=== PATIENT | female | born 1945 | race African-American/Black ===

== ENCOUNTER 2024-12-13 16:14 | Emergency (ER) | payer OTHER ==
[~2024-12-13] VITALS: Ht 170.2 cm; Wt 82.0 kg
[2024-12-13] MEDS: METHYLPREDNISOLONE SOD SUCC 125MG/2ML (ACT-O-VIAL) IV STA (17:05)
[2024-12-13 17:06] LABS: HEMATOCRIT. 23.4 % (36.0-48.0); HEMOGLOBIN. 7.1 g/dL (12.0-16.0); MEAN PLATELET VOLUME 9.3 fl (7.4-10.4); PLATELET 281 x1000/uL (130-400); RED BLOOD CELL COUNT 3.27 mill/uL (4.2-5.4); RED CELL DISTRIBUTION WIDTH 20.2 % (11.6-14.6)
[2024-12-13 17:18] LABS: CREATININE 1.8 mg/dL (0.6-1.0); UREA NITROGEN BLOOD 32 mg/dL (9-23)
[2024-12-13 17:27] LABS: TROPONIN I HIGH SENSITIVITY 144 ng/L (3.0-34)
[2024-12-13 17:52] LABS: BAND% 3.0 % (1.0-6.0); EOSINOPHILS % MANUAL 2.0 % (0.0-5.0); LYMPHOCYTES % MANUAL 13.0 % (20.0-60.0); METAMYELOCYTES % 1.0 % (0-0); MONOCYTES % MANUAL 14.0 % (2.0-8.0); MYELOCYTES % 1.0 % (0-0); NEUTROPHILS % MANUAL 66.0 % (45.0-75.0); PLATELET ESTIMATE NORMAL
[2024-12-13 18:06] LABS: BG BASE EXCESS 5.2 mmol/L (-2.0-3.0); BG CARBOXYHEMOGLOBIN 1.2 % (0.5-1.5); BG DEOXYHEMOGLOBIN 1.3 % (0.0-5.0); BG FLOW(L/min) 4.00 L/min; BG FRACTION INSPIRED OXYGEN 36; BG HCO3 ACT 32.9 mmol/L (21.0-28.0); BG METHEMOGLOBIN 0.3 % (0.5-1.5); BG OXYGEN SATURATION 98.7 % (94.0-98.0); BG OXYHEMOGLOBIN 97.2 % (94.0-98.0); BG PCO2 70.6 mmHg (32.0-45.0); BG PH 7.286 (7.350-7.450); BG PO2 130.7 mmHg (83.0-108.0); BG SAMPLE SITE LEFT RADIAL; BG TOTAL HEMOGLOBIN 8.2 g/dL (12.0-16.0); BG VENT MODE NASAL CANNULA
[2024-12-13] MEDS: IPRATROPIUM BROMIDE (0.02%) 0.5MG/2.5ML NEB HHN STA (18:13)
[2024-12-13] MEDS: ALBUTEROL (0.083%) 2.5MG/3ML NEB HHN STA (18:13)
[2024-12-13 18:14] VITALS: PULSE 66; RESP 20; O2SAT 100
[2024-12-13 19:24] VITALS: RESP 26
[2024-12-13 20:35] LABS: TROPONIN I HIGH SENSITIVITY 156 ng/L (3.0-34)
[2024-12-13 20:42] VITALS: BP 116/70; PULSE 77; RESP 13; TEMP 37.2; O2SAT 100
== END 2024-12-13 21:00 | disposition home or self-care (01) ==
LOC: ER 16:14
DX: R06.89 Other abnormalities of breathing (principal); R60.0 Localized edema; J44.9 Chronic obstructive pulmonary disease, unspecified
CPT/HCPCS: 99285; 96374; 71045; 80048; 83880; 85025; 84484; 36415; 94640; 82805; 82375; 93005; 36600; 94644; J2919; 94070; A4606